=== PATIENT | female | born 1955 | race Caucasian/White ===

== ENCOUNTER 2023-07-20 05:30 | Outpatient (CLI) | payer MEDICARE, OTHER ==
[~2023-07-20] VITALS: Ht 160 cm; Wt 87.3 kg
[2023-07-21] MEDS ORDERED: MAGN27TA3 PO (10:02)
[2023-07-21] MEDS ORDERED: ATOR10TA66 PO (10:02)
[2023-07-21] MEDS ORDERED: LISI10TA25 PO (10:02)
[2023-07-21] MEDS ORDERED: ASPI-1238 PO (10:02)
[2023-07-21] MEDS ORDERED: OMEP40CA6 PO (10:02)
[2023-07-21] MEDS ORDERED: PAPA100T PO (10:02)
[2023-07-21] MEDS ORDERED: CHOL100048 PO (10:02)
[2023-07-21] MEDS ORDERED: ASCO500T16 PO (10:02)
[2023-07-21] MEDS ORDERED: [UNRECOGNIZED DRUG - CODE] OP (10:02)
[2023-07-21] MEDS ORDERED: LORA-703 PO (10:02)
[2023-07-21] MEDS ORDERED: CALC600T91 PO (10:02)
[2023-07-21] MEDS ORDERED: GLUC1CAP37 PO (10:02)
[2023-07-21] MEDS ORDERED: MELO15TA39 PO (10:02)
== END 2023-07-21 09:54 | disposition home or self-care (01) ==
LOC: PREOP 05:30
PROVIDERS: ATTEND Specialist
DX: Z01.818 Encounter for other preprocedural examination (principal)

== ENCOUNTER 2023-07-28 07:32 | Day surgery (SDC) | payer MEDICARE, OTHER ==
[~2023-07-28] VITALS: Ht 160 cm; Wt 87.3 kg
[~2023-07-28 07:32] MED LIST: ASCO500T16 PO; ASPI-1238 PO; ATOR10TA66 PO; CALC600T91 PO; CHOL100048 PO; GLUC1CAP37 PO; LISI10TA25 PO; LORA-703 PO; MAGN27TA3 PO; MELO15TA39 PO; OMEP40CA6 PO; PAPA100T PO; [UNRECOGNIZED DRUG - CODE] OP
[2023-07-28] MEDS ORDERED: LIDOCAINE PF 1% 2 ML VIAL IR PRN (08:00)
[2023-07-28] MEDS ORDERED: POVIDONE IODINE OPHTH SOLN 5% 30 ML OP ONE (08:00)
[2023-07-28] MEDS ORDERED: TIMOLOL 0.5% (CATARACTS) 0.3 ML BTL OU PRN (08:00)
[2023-07-28] MEDS ORDERED: MOXIFLOXACIN OPHTH SOLN 5 MG/ML 0.5 ML SYRINGE OP ONE (08:00)
[2023-07-28] MEDS: TETRACAINE 0.5% OPHTH SOLN 4 ML BTL (SINGLE DOSE ONLY) OU PRN ×4 (08:17→08:38)
[2023-07-28] MEDS: PHENYLEPHRINE 10% OPHTH SOLN 5 ML BTL OU SCH ×3 (08:24→08:38)
[2023-07-28] MEDS: TROPICAMIDE 1% OPH SOLN (MYDRIACYL) 15 ML BTL OP SCH ×3 (08:24→08:38)
[2023-07-28 08:40] VITALS: BP 140/80
--- NOTE | 2023-07-28 08:43 | Ophthalmologist Pre-Op Note ---
Pre-Operative Progress Note H&P Reviewed The H&P was reviewed, patient examined and no changes noted. Date H&P Reviewed: Jul 28, 2023 Time H&P Reviewed: 08:43 Pre-Op Dx Cataract, Left Eye KUSUM PIPER MD Jul 28, 2023 08:43
[2023-07-28] MEDS ORDERED: MIDAZOLAM INJ 2 MG/2 ML VIAL ONE (08:46)
--- NOTE | 2023-07-28 09:01 | Ophthalmology Operative Report ---
Cataract removal/placement IOL PREOPERATIVE DIAGNOSIS: Cataract Left Eye POSTOPERATIVE DIAGNOSIS: Cataract Left Eye PROCEDURE: Cataract removal and placement of posterior chamber implant, left eye SURGEON: Mirza Piper ANESTHESIA: Topical with sedation COMPLICATIONS: None ESTIMATED BLOOD LOSS: Minimal DESCRIPTION OF PROCEDURE: After proper informed consent was obtained, the patient, a [id number] female, was taken to the Operating Room and the left eye was anesthetized with tetracaine. The left eye was then prepped and draped in the usual manner. A wire lid speculum was placed. A paracentesis was made at the left hand position. Preservative free lidocaine was injected into the anterior chamber followed by viscoelastic. A clear corneal incision was made in the temporal position. A capsulorrhexis was preformed and the central nuclear and cortical material were removed. The posterior capsule was polished and an Kevon 6.0 CNA0T0 was placed into the capsular bag. The residual viscoelastic was aspirated and balanced saline solution was injected into the anterior chamber. Moxifloxacin was injected into the anterior chamber. The wound was checked and found to be water tight. The patient tolerated the procedure well without complications. MIRZA PIPER MD Jul 28, 2023 09:01
[2023-07-28 09:10] VITALS: BP 135/69
--- NOTE | 2023-07-28 12:11 | Anesthesia-General Post-Op ---
MAC Patient Condition Mental Status/LOC: Same as Preop Cardiovascular: Satisfactory Nausea/Vomiting: Absent Respiratory: Satisfactory Pain: Controlled Complications: Absent Post Op Complications Complications None Follow Up Care/Instructions Patient Instructions None needed. Anesthesiology Discharge Order Discharge Order Patient was doing well this morning after the procedure with no complaints, stable vital signs, no apparent adverse anesthesia problems. No complications reported per nursing. RAMIREZ MALONE DO Jul 28, 2023 12:11
== END 2023-07-28 09:10 | disposition home or self-care (01) ==
LOC: SDC 07:32
PROVIDERS: ATTEND Specialist
DX: H25.9 Unspecified age-related cataract (principal)
CPT/HCPCS: 66984; V2632